=== PATIENT | female | born 1995 | race Caucasian/White ===

== ENCOUNTER 2016-12-12 19:23 | Emergency (ER) | payer BC ==
[2016-12-12] MEDS ORDERED: IBUPROFEN 600 MG TAB PO ONE (20:23)
--- NOTE | 2016-12-12 20:23 | EDPHY ---
General - History History Review: I reviewed the patient's medical records Smoking Status: Never smoked Narrative: CHIEF COMPLAINT: Swelling of the left side of the jaw HISTORY OF PRESENT ILLNESS: Patient complains of left-sided mandibular pain and swelling that started last night. Gradual onset. Constant duration. Mild to moderately painful. She has no sore throat at this time, but she did have sore throat, body aches and fever last week. Mild cough and runny nose. No medications taken today or last night. No headache. No neck pain or stiffness. No trauma or injury. No cough or shortness of breath at this time. Went to urgent care and they sent her to our facility for higher level of care. REVIEW OF SYSTEMS: Ten systems reviewed and are negative unless otherwise noted in the HPI PCP: Dr. Gallardo SPECIALISTS: None PAST MEDICAL HISTORY: None PAST SURGICAL HISTORY: No surgical history SOCIAL HISTORY: Nonsmoker. No alcohol or illicit substance use. She is a student at [employer]. She is originally from [place], [place] FAMILY HISTORY: Noncontributory EXAMINATION General Appearance: Alert, no distress Head: normocephalic, atraumatic Eyes: Pupils equal and round, no conjunctival pallor or injection ENT, Mouth: Mucous membranes moist. Uvula midline. Airway widely patent. No erythema edema or. No exudate. No abnormality of the floor of the mouth. There is tenderness of the left parotid gland. I do not appreciate any abnormality of Stensen's or Citrus's ducts. No fluctuance of the left parotid gland. Tenderness at the left TMJ. very Mild edema of the left mandible at the angle Neck: Normal inspection, supple, non-tender. No meningismus or rigidity. Painless range of motion Respiratory: Lungs are clear to auscultation. No wheezing, rhonchi or crackles Cardiovascular: Regular rate and rhythm. No murmur Gastrointestinal: Abdomen is soft and nontender Back: non-tender, no bony abnormalities Neurological: GCS 15. A&O, nonfocal, normal gait Skin: Warm and dry, no rash Extremities: Nontender, no pedal edema Psychiatric: Mood and affect normal DIFFERENTIAL DIAGNOSES: Including but not limited to parotiditis, sialoadenitis, TMJ, abscess MDM: 8:20 p.m. Left-sided mandibular pain and TMJ pain. There is tenderness of the left parotid gland. There is no warmth or cellulitis. No fluctuance. No evidence of abscess. Vital signs are within normal limits. No neck pain or stiffness. I have ordered laboratory studies, strep test, mono. I do not feel the patient needs an emergent CT scan. I feel that this will be related to TMJ or parotiditis. Ibuprofen ordered. 9:45 p.m. Laboratory studies are all negative including a negative strep and negative mono. I feel this is more likely TMJ. I do not appreciate any evidence of infection. There is no evidence of parotititis. Discharged home with Augmentin prophylaxis for repair coverage. Additionally I would like her to take ibuprofen 600-800 every 8 hours. Follow up with dentist and primary care physician. ED precautions for worsening swelling or pain, fever, warmth or redness to the face. She is comfortable this plan. Her father at bedside is comfortable this plan. Discharged in stable condition. (Virgil Bolivar) The patient was evaluated and managed by the physician golf player assistant. I have reviewed this chart and I agree with the findings and plan of care as documented , as indicated by my signature. I am the secondary supervising physician. ( Valeri Terrell) - Objective Vital Signs: Initial Vital Signs Temperature (C) 37.4 C 12/12/16 19:25 Heart Rate 74 12/12/16 19:25 Respiratory Rate 14 12/12/16 19:25 Blood Pressure 128/81 H 12/12/16 19:25 O2 Sat (%) 98 12/12/16 19:25 O2 Delivery Mode Room Air Allergies/Adverse Reactions: No Known Allergies Allergy (Unverified 06/03/15 14:27) Home Medications: Medication Instructions Recorded Bcp 06/03/15 Amoxicillin/Clavulanate Pot 875 mg PO BID #14 tab 12/12/16 [Augmentin 875 MG TAB (*)] Laboratory Results: Laboratory Results 12/12/16 20:41 12/12/16 20:41 Medications Given: Discontinued Medications Amoxicillin/Clavulanate Potassium (Augmentin 875mg) 875 mg PO EDNOW ONE PRN Reason: Protocol Stop: 12/12/16 21:51 Last Admin: 12/12/16 22:12 Dose: 875 mg Ibuprofen (Motrin) 600 mg PO EDNOW ONE Stop: 12/12/16 20:24 Last Admin: 12/12/16 20:43 Dose: 600 mg Departure - Departure Disposition: Home, Routine, Self-Care Clinical Impression: Jaw pain Condition: Good Instructions: Temporomandibular Disorder (ED) Additional Instructions: 1. Medication as prescribed to completion 2. Follow up with primary care physician and dentist 3. Ibuprofen 600-800 mg every 8 hours for the next 7 days with food 4. ED precautions for worsening swelling or pain, redness, warmth, purulence Referrals: Miguelina Gallardo [Primary Care Provider] - As per Instructions Prescriptions: Amoxicillin/Clavulanate Pot [Augmentin 875 MG TAB (*)] 875 mg PO BID #14 tab
[2016-12-12 20:53] LABS: % IMMATURE GRANULYOCYTES 0.1 % (0.0-1.1); ABSOLUTE IMMATURE GRANULOCYTES 0.01 10^3/uL (0.00-0.10); ADD DIFF? NO; ADD MORPH? NO; ADD SCAN? NO; ATYPICAL LYMPHOCYTE FLAG 20 (0-99); FRAGMENT RBC FLAG 0 (0-99); HEMATOCRIT 45.3 % (38.0-47.0); HEMOGLOBIN 15.3 g/dL (12.6-16.3); LEFT SHIFT FLG 0 (0-99); LIPEMIA HEMOLYSIS FLAG 90 (0-99); MEAN CELL HEMOGLOBIN 30.8 pg (27.9-34.1); MEAN CELL HEMOGLOBIN CONCENTR. 33.8 g/dL (32.4-36.7); MEAN CELL VOLUME 91.1 fL (81.5-99.8); MEAN PLATELET VOLUME 9.9 fL (8.7-11.7); PLATELET CLUMPS FLAG 0 (0-99); PLATELET COUNT 292 10^3/uL (150-400); RED BLOOD CELL COUNT 4.97 10^6/uL (4.18-5.33); RED CELL DISTRIBUTION WIDTH 12.4 % (11.5-15.2)
[2016-12-12 21:06] LABS: BHCG-QUALITATIVE NEGATIVE; MONO TEST NEGATIVE (NEGATIVE)
[2016-12-12 21:07] LABS: ANION GAP 14 mEq/L (8-16); CALCIUM 9.8 mg/dL (8.5-10.4); CARBON DIOXIDE 21 mEq/l (22-31); CHLORIDE 106 mEq/L (97-110); CREATININE 0.8 mg/dL (0.6-1.0); GLOMERULAR FILTRATION RATE > 60; GLUCOSE 84 mg/dL (70-100); POTASSIUM 3.7 mEq/L (3.5-5.2); SODIUM 141 mEq/L (134-144)
[2016-12-12] MEDS ORDERED: AMOXICILLIN/CLAVULANATE POT 875/125 MG TAB PO ONE (21:50)
[2016-12-12 22:19] VITALS: BP 114/65; PULSE 80; RESP 16; TEMP 98.8; O2SAT 96
== END 2016-12-12 22:19 | disposition home or self-care (01) ==
DX: R68.84 Jaw pain (principal)